=== PATIENT | female | born 1935 | race Caucasian/White ===

== ENCOUNTER 2016-07-21 15:53 | Emergency (ER) | payer MEDICARE, SELFPAY ==
[2016-07-21 16:35] LABS: BASO % 0.5 % (0.1-1.2); EOS # 0.4 10_X3_uL (0.0-0.4); EOS % 4.6 % (0.7-5.8); GRAN # 4.5 10_X3_uL (1.6-6.1); GRAN % 54.3 % (34.0-71.1); HEMATOCRIT 43.8 % (34-45); HEMOGLOBIN 14.5 g/dL (11.2-15.7); LYMPH # 2.5 10_X3_uL (1.2-3.7); LYMPH % 29.8 % (19.3-51.7); MEAN CORPUSCULAR HEMOGLOBIN 30.3 pg (27.0-33.0); MEAN CORPUSCULAR HGB CONC 33.1 g/dL (32.0-36.0); MEAN CORPUSCULAR VOLUME 91.4 fL (79-95); MEAN PLATELET VOLUME 11.5 fl (7.5-11.5); MONO # 0.9 10_X3_uL (0.2-0.9); MONO % 10.8 % (4.7-12.5); PLATELET COUNT 153 x10_3/uL (182-369); RED BLOOD COUNT 4.79 x10_6/uL (3.9-5.2); RED CELL DISTRIBUTION WIDTH 14.3 % (11.7-14.4); WHITE BLOOD COUNT 8.2 x10_3/uL (4.0-10.0)
[2016-07-21 16:46] LABS: URINE BILIRUBIN 2+ (NEGATIVE); URINE BLOOD TRACE (NEGATIVE); URINE GLUCOSE (UA) NORMAL (NORMAL); URINE KETONE NEGATIVE (NEGATIVE); URINE LEUKOCYTE ESTERASE TRACE (NEGATIVE); URINE NITRATE NEGATIVE (NEGATIVE); URINE PROTEIN TRACE (NEGATIVE)
[2016-07-21 16:47] LABS: URINE BACTERIA 1+ (NONE SEEN); URINE RBC 0-5 /[HPF] (0-2); URINE SQUAMOUS EPITHELIAL CELL 15-20 /[HPF] (NONE SEEN); URINE YEAST FEW (NONE SEEN)
[2016-07-21 16:50] LABS: BLOOD UREA NITROGEN 12 mg/dL (7-18); CALCIUM 9.5 mg/dL (8.7-10.7); CARBON DIOXIDE 26 mmol/L (21-32); CREATININE 0.7 mg/dL (0.6-1.3); GLUCOSE,RANDOM 100 mg/dL (70-99); POTASSIUM 4.4 mmol/L (3.5-5.1); SODIUM 145 mmol/L (136-145)
== END 2016-07-21 19:32 | disposition home or self-care (01) ==
LOC: ER 15:53
PROVIDERS: General Practice
DX: N39.0 Urinary tract infection, site not specified (principal); G31.9 Degenerative disease of nervous system, unspecified; I73.9 Peripheral vascular disease, unspecified; K57.90 Diverticulosis of intestine, part unspecified, without perforation or abscess without bleeding; N28.1 Cyst of kidney, acquired; R10.32 Left lower quadrant pain; M51.34 Other intervertebral disc degeneration, thoracic region; M51.36 Other intervertebral disc degeneration, lumbar region; G89.29 Other chronic pain; M54.9 Dorsalgia, unspecified; R51 Headache; M19.90 Unspecified osteoarthritis, unspecified site; M25.552 Pain in left hip; Z86.73 Personal history of transient ischemic attack (TIA), and cerebral infarction without residual deficits; W19.XXXD Unspecified fall, subsequent encounter
CPT/HCPCS: 36415; 70450; 72128; 72131; 73700; 80048; 81001; 85025; 99070; 99284; 99284-25; J7040; Q9967